=== PATIENT | female | born 1995 | race Caucasian/White ===

== ENCOUNTER 2021-07-01 17:50 | Emergency (ER) | payer OTHER ==
[2021-07-01 19:22] LABS: HEMOGLOBIN 12.7 gm/dl (12.3-15.3); RED BLOOD COUNT 5.24 M/UL (4.00-5.10); WHITE BLOOD COUNT 12.7 K/UL (4.5-11.0)
[2021-07-01 19:41] LABS: BUN/CREATININE RATIO 15 (0-10)
[2021-07-01] MEDS ORDERED: CEFDINIR300 MG PO (21:53)
[2021-07-01] MEDS ORDERED: IBUPROFEN800 MG PO (21:53)
[2021-07-01] MEDS ORDERED: PYRIDIUM200 MG PO (21:53)
[2021-07-01] MEDS ORDERED: ONDANSETRON ODT4 MG SL (21:53)
== END 2021-07-01 22:25 | disposition home or self-care (01) ==
LOC: ER1 17:50
PROVIDERS: Physician Assistant
DX: N39.0 Urinary tract infection, site not specified (principal); R31.9 Hematuria, unspecified; F17.200 Nicotine dependence, unspecified, uncomplicated
CPT/HCPCS: 80053; 81001; 83690; 84703; 85025; 96374; 99284; J1885; Q9967